=== PATIENT | female | born 2000 | race Caucasian/White ===

== ENCOUNTER 2020-10-11 02:37 | Emergency (ER) | payer OTHER ==
[~2020-10-11] VITALS: Ht 167.6 cm; Wt 56.7 kg
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
[2020-10-11] MEDS ORDERED: IBUPROFEN 600 MG TABLET. PO ONE (03:15)
[2020-10-11] MEDS ORDERED: oxyCODONE/APAP 5/325 1 TAB TABLET PO ONE (03:15)
[2020-10-11] MEDS ORDERED: IV RINGERS SOLUTION,LACTATED 1,000 ML IV ONE (03:30)
[2020-10-11 04:59] LABS: BILIRUBIN,URINE NEG (NEG); CLARITY,URINE HAZY; COLOR,URINE STRAW; GLUCOSE,URINE >=1000 mg/dL (NEG)
[2020-10-11 05:00] LABS: BACTERIA,URINE FEW /HPF (0-FEW); NITRITE,URINE NEG (NEG); RBC,URINE OCC /HPF (0-2); SQUAMOUS EPITHELIAL CELL,UR MANY /LPF; UROBILINOGEN,URINE 0.2 mg/dL (0.2 mg/dL); WBC,URINE OCC /HPF (0-4)
[2020-10-11] MEDS ORDERED: INSULIN LISPRO 300 UNITS/3 ML VIAL. SQ ONE (05:15)
[2020-10-11 06:05] VITALS: BP 107/58
--- NOTE | 2020-10-11 07:07 | RAD ---
XR HAND_RIGHT 2 VIEWS DATE: 10/11/2020 3:15 AM INDICATION: 5th MCP pain, FALL-4 WEEKS AGO COMPARISON: None. FINDINGS: Bones: Subtle linear lucency at the neck of the fifth metacarpal. Joints: The joint spaces are normal. Miscellaneous: None. IMPRESSION: Subtle linear lucency at the neck of the fifth metacarpal, which could represent a nondisplaced fract ure Electronically signed by: Jd Robles MD (10/11/2020 7:05 AM) [id number]
== END 2020-10-11 06:10 | disposition home or self-care (01) ==
LOC: ER 02:37
DX: S62.336A Displaced fracture of neck of fifth metacarpal bone, right hand, initial encounter for closed fracture (principal); F32.9 Major depressive disorder, single episode, unspecified; V43.62XA Car passenger injured in collision with other type car in traffic accident, initial encounter; Y93.89 Activity, other specified; Y92.89 Other specified places as the place of occurrence of the external cause; Y99.8 Other external cause status
CPT/HCPCS: 73120; 81001; 81025; 82947; 99284-25

== ENCOUNTER 2021-05-01 12:35 | Emergency (ER) | payer SELFPAY ==
[~2021-05-01] VITALS: Ht 167.6 cm; Wt 59.7 kg
[2021-05-01 12:35] VITALS: BP 130/69
--- NOTE | 2021-05-01 13:09 | PHYS DOC ---
Past History Past Surgical History: Other Additional Past Surgical Histo: wisdom teeth, Alcohol Use: Occasionally Adult General Chief Complaint Chief Complaint: MEDICATION REFILL [facility] HPI Patient is a 21-year-old female presenting to emergency department as she is out of her insulin for her type 1 diabetes and says that she has been using insulin lispro and recently moved here and has run out and has been unable to get her prescription. She brought the bottle of insulin lispro and says that she does have a prescription on file at the [facility] in [place] but her prescriber was not able to get to her and refill it and now it is the weekend and she cannot get a prescription. She says she just ran out this morning denies any symptoms of nausea vomiting fevers or feeling that she could be in DKA. She is in no acute distress with normal vital signs. Review of Systems Review of Systems Constitutional: Denies fever or chills [] Eyes: Denies change in visual acuity, redness, or eye pain [] HENT: Denies nasal congestion or sore throat [] Respiratory: Denies cough or shortness of breath [] Cardiovascular: No additional information not addressed in HPI [] GI: Denies abdominal pain, nausea, vomiting, bloody stools or diarrhea [] : Denies dysuria or hematuria [] Musculoskeletal: Denies back pain or joint pain [] Integument: Denies rash or skin lesions [] Neurologic: Denies headache, focal weakness or sensory changes [] All other systems were reviewed and found to be within normal limits, except as documented in this note. Allergies Allergies Allergies Coded Allergies Type Severity Reaction Last Updated Verified No Known Drug Allergies 10/11/20 No Physical Exam Physical Exam Constitutional: Well developed, well nourished, no acute distress, non-toxic appearance. [] HENT: Normocephalic, atraumatic, bilateral external ears normal, oropharynx moist, no oral exudates, nose normal. [] Eyes: PERRLA, EOMI, conjunctiva normal, no discharge. [] Neck: Normal range of motion, no tenderness, supple, no stridor. [] Cardiovascular:Heart rate regular rhythm, no murmur [] Lungs & Thorax: Bilateral breath sounds clear to auscultation [] Abdomen: Bowel sounds normal, soft, no tenderness, no masses, no pulsatile masses. [] Skin: Warm, dry, no erythema, no rash. [] Back: No tenderness, no CVA tenderness. [] Extremities: No tenderness, no cyanosis, no clubbing, ROM intact, no edema. [] Neurologic: Alert and oriented X 3, normal motor function, normal sensory function, no focal deficits noted. Current Patient Data Vital Signs Vital Signs Date Time Temp Pulse Resp B/P (MAP) Pulse Ox O2 Delivery O2 Flow Rate FiO2 05/01/21 12:35 110 18 130/69 (89) 99 Room Air EKG EKG [] Radiology/Procedures Radiology/Procedures [] Heart Score C/O Chest Pain: No Risk Factors: Risk Factors: DM, Current or recent (<one month) smoker, HTN, HLP, family history of CAD, obesity. Risk Scores: Risk Factors: DM, Current or recent (<one month) smoker, HTN, HLP, family history of CAD, obesity. Course & Med Decision Making Course & Med Decision Making I called the [facility] pharmacy and they were able to refill her insulin prescription. Patient will be discharged in stable condition and told to return anytime with any concerns. Dragon Disclaimer Dragon Disclaimer This electronic medical record was generated, in whole or in part, using a voice recognition dictation system. Departure Departure: Impression: Primary Impression: Type 1 diabetes Additional Impression: Medication refill Disposition: HOME / SELF CARE / HOMELESS Condition: STABLE Referrals: PCP,NO (PCP) Problem Qualifiers ANDREW NI DO May 01, 2021 13:09
== END 2021-05-01 13:15 | disposition home or self-care (01) ==
LOC: ER 12:35
DX: E10.9 Type 1 diabetes mellitus without complications (principal); Z76.0 Encounter for issue of repeat prescription
CPT/HCPCS: 99281